=== PATIENT | male | born 1995 | race Caucasian/White ===

== ENCOUNTER 2017-02-12 21:16 | Observation (INO) | payer OTHER ==
[~2017-02-12] VITALS: Ht 182.9 cm; Wt 82.1 kg
[~2017-02-12 21:16] MED LIST: LAMO5TB.2 PO; METH5TAB4 PO
[2017-02-12 22:29] LABS: HEMOGLOBIN 16.1 g/dL (13.7-18.0)
[2017-02-12 22:38] LABS: ASPARTATE AMINO TRANSFERASE 19 U/L (15-37); BLOOD UREA NITROGEN 16 mg/dL (7-18)
[2017-02-12 22:41] LABS: ACETAMINOPHEN < 2 mcg/mL (10-30)
[2017-02-12 23:23] LABS: DAU SCREEN DISCLAIMER
[2017-02-13] MEDS ORDERED: ACETAMINOPHEN 325 MG TABLET PO PRN (03:30)
[2017-02-13] MEDS ORDERED: ONDANSETRON ODT 4 MG PO PRN (03:30)
[2017-02-13] MEDS ORDERED: DOCUSATE 100 MG CAPSULE PO PRN (03:30)
[2017-02-13 04:15] VITALS: BP 120/89
[2017-02-13 07:59] VITALS: BP 108/63
[2017-02-13] MEDS ORDERED: METHYLPHENIDATE 10 MG TABLET PO SCH (09:00)
[2017-02-13] MEDS ORDERED: LAMOTRIGINE 5 MG PO SCH (09:00)
[2017-02-13] MEDS ORDERED: METHYLPHENIDATE HCL 5 MG PO SCH (09:00)
[2017-02-13] MEDS ORDERED: LAMOTRIGINE 25 MG TABLET PO SCH (09:00)
== END 2017-02-13 14:14 ==
LOC: ED 23:39 → EDIP 02-13 02:48 → 3E 02-13 04:11
PROVIDERS: ADMIT Internal Medicine; ATTEND Internal Medicine
DX: R45.851 Suicidal ideations (principal); F32.9 Major depressive disorder, single episode, unspecified; F90.9 Attention-deficit hyperactivity disorder, unspecified type; Z81.8 Family history of other mental and behavioral disorders; Z98.890 Other specified postprocedural states
CPT/HCPCS: 36415; 80053; 80307; 80329; 85025; 99285; G0378; G0480